=== PATIENT | female | born 1930 | race Caucasian/White ===

== ENCOUNTER 2019-01-24 16:19 | Emergency (ER) | payer MEDICARE ==
--- OUTSIDE RECORDS SUMMARY | 2019-01-24 16:25 | XMS REPORT | Continuity of Care Document ---
:1930 External Reference #:[id number] Author Name Darryl Quintanilla M.D. Address 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 [phone] Problems Description No Information Available Social History Type Date Description Comments Sex Unknown ETOH Use Never used alcohol Tobacco Use Start: Unknown Patient has never smoked Smoking Status Reviewed: 12/12/18 Patient has never smoked Allergies, Adverse Reactions, Alerts Active Allergies Reaction Severity Comments Date Voltaren 12/12/2018 Medications Active Medications SIG Qnty Indications Ordering Provider Date Calcitriol Foreign Olvera MD 0.25mcg Capsules Simvastatin Johnny Murray MD 10mg Tablets Metoprolol Succinate ER Johnny Murray MD 25mg Tablets ER 24HR Omeprazole Johnny Murray MD 40mg Capsules DR Amlodipine Besylate Johnny Murray MD 5mg Tablets Immunizations Description No Information Available Vital Signs Date Vital Result Comment 12/12/2018 2:47pm Intraocular Pressure Right Eye 14 mmHg Intraocular Pressure Left Eye 15 mmHg Results Description No Information Available Procedures Date Code Description Status 12/12/2018 68886 Refraction Completed 12/12/2018 76006 Eye Exam New Comprehensive Completed Medical Devices Description No Information Available Encounters Description No Information Available Assessments Date Code Description Provider 12/12/2018 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 12/12/2018 H01.025 Squamous blepharitis left lower eyelid Darryl Quintanilla M.D. 12/12/2018 Z96.1 Presence of intraocular lens Darryl Quintanilla M.D. Plan of Treatment 12/12/2018 - Darryl Quintanilla M.D.H01.022 Squamous blepharitis right lower eyelidFollow up:1 yrH01.025 Squamous blepharitis left lower eyelidFollow up:1 yrZ96.1 Presence of intraocular lensFollow up:1 yr Functional Status Description No Information Available Mental Status Description No Information Available Referrals Description No Information Available
[2019-01-24 16:45] VITALS: BP 166/77
--- NOTE | 2019-01-24 17:54 | UC ---
Skin Complaint HPI - HPI Summary HPI Summary: C/O tick on the back of her head ? 3 days. - History of Current Complaint Chief Complaint: UCSkin Time Seen by Provider: 01/24/19 17:35 Stated Complaint: TICK BITE Hx Obtained From: Patient Hx Last Menstrual Period: Years ago. Onset/Duration: Sudden Onset, Lasting Days - 3, Still Present Skin Exposure Onset/Duration: Days Ago - 3, working in the yard. Timing: Constant Onset Severity: Mild Current Severity: Mild Pain Intensity: 0 Location: Discrete - left occipital scalp Character: Redness Aggravating Factor(s): Touch Alleviating Factor(s): Nothing Associated Signs & Symptoms: Positive: Tenderness. Negative: Nausea, Vomiting, Fever, Chills, Rash, Lightheadedness, Drainage Related History: Insect Bite/Sting - tick bite - Allergy/Home Medications Allergies/Adverse Reactions: Allergies Allergy/AdvReac Type Severity Reaction Status Date / Time MS Celecoxib [From Celebrex] Allergy Severe TONGUE Verified 08/29/15 20:04 SWELLING MS Sulfa Antibiotics Allergy Severe TONGUE Verified 08/29/15 20:04 [Sulfa Antibiotics] SWELLING PMH/Surg Hx/FS Hx/Imm Hx Endocrine History: Hyperthyroidism Other Endocrine History: osteoporosis Other History Of: Negative For: HIV, Hepatitis B, Hepatitis C - Surgical History Surgical History: Yes Surgery Procedure, Year, and Place: LEG VEIN STRIPPING, FX RIGHT ANKLE REPAIR, FX RIGHT WRIST REPAIR, CALCIUM DEPOSIT REMOVED FROM RIGHT SHOULDER - Family History Known Family History: Negative: Diabetes, Seizure Disorder, Blood Disorder - Social History Occupation: Retired Lives: Alone Alcohol Use: None Substance Use Type: None Smoking Status (MU): Never Smoked Tobacco Review of Systems All Other Systems Reviewed And Are Negative: Yes Skin: Positive: Other - tick bite Physical Exam Triage Information Reviewed: Yes Appearance: Well-Appearing, No Pain Distress, Well-Nourished Vital Signs: Initial Vital Signs Temp 98.9 F 01/24/19 16:40 Pulse 83 01/24/19 16:40 Resp 18 01/24/19 16:40 BP 166/77 01/24/19 16:40 Pulse Ox 100 01/24/19 16:40 Vital Signs Reviewed: Yes Eyes: Positive: Conjunctiva Clear Neck exam: Normal Respiratory Exam: Normal Cardiovascular Exam: Normal Musculoskeletal Exam: Normal Musculoskeletal: Positive: Edema @ - trace-1+ pre-tibial with compression stockings Neurological Exam: Normal Psychological Exam: Normal Skin: Positive: Other - attached tick on the left occipital scalp Procedures - Procedure Summary Procedure Summary: Tick was removed intact with Otoms tick twister from the left occipital scalp Course/Dx - Differential Diagnoses - Skin Complaint Differential Diagnoses: Abscess, Cellulitis, Contact Dermatitis, Impetigo, Tick Born Illness - Diagnoses Provider Diagnosis: Tick bite of scalp Discharge ED - Sign-Out/Discharge Documenting (check all that apply): Patient Departure All imaging exams completed and their final reports reviewed: No Studies - Discharge Plan Condition: Stable Disposition: HOME Prescriptions: DOXYcycline CAP(*) [DOXYcycline 100MG CAP(*)] 200 mg PO ONCE #2 cap Patient Education Materials: Tick Bite (ED), Doxycycline (By mouth) Referrals: Johnny Murray MD [Primary Care Provider] - - Billing Disposition and Condition Condition: STABLE Disposition: Home
== END 2019-01-24 18:04 | disposition home or self-care (01) ==
LOC: UCCORT 16:19
DX: S00.06XA Insect bite (nonvenomous) of scalp, initial encounter (principal); Z88.2 Allergy status to sulfonamides; Z88.8 Allergy status to other drugs, medicaments and biological substances; W57.XXXA Bitten or stung by nonvenomous insect and other nonvenomous arthropods, initial encounter; Y92.9 Unspecified place or not applicable
CPT/HCPCS: 99212; G0463